=== PATIENT | male | born 1975 | race African-American/Black ===

== ENCOUNTER 2018-09-07 20:03 | Inpatient (IN) | payer MEDICAID, OTHER ==
[~2018-09-07] VITALS: Ht 193 cm; Wt 127.0 kg
[~2018-09-07 20:03] MED LIST: BENADRYL50 MG ORAL; BUPROPION XL300 MG ORAL
[2018-09-07 20:12] VITALS: BP 180/101
--- NOTE | 2018-09-07 20:12 | NUR ---
ED Nurse Note: pt was [place] in by [address] c/o posible overdose. pt stated he took some sherm today. pt aox3. on collar brace upon arrival. pt denies any pain. pt becomes agitaed and got frustrated when he is looking for his jacket and wasnt able to find it. ewelina ordered restraint and im meds. and carried out. will conit
[2018-09-07] MEDS ORDERED: DiphenhydrAMINE 50mg/ml Inj IM ONE (20:15)
[2018-09-07] MEDS ORDERED: Haloperidol 5mg/ml Inj IM ONE (20:15)
[2018-09-07] MEDS ORDERED: LORazepam Inj 2mg/ml 1ml IM ONE (20:15)
[2018-09-07] MEDS ORDERED: Haloperidol 5mg/ml Inj ONE (20:15)
--- NOTE | 2018-09-07 20:15 | Emergency Room Report ---
History of Present Illness General Source: EMS, Law Enforcement (Vishnu Balderas MD) Present Illness HPI Patient [place] altered on [place]. He was laying on the ground and Police reported pinpoint pupils. EMS felt that this is not related to narcotics but the patient admitted to smoking [employer]. He is unable to answer questions at this time. Some apparent head trauma. Has bump on forehead. Place in hard C collar. H/O prior psychiatric problems. Last seen here January 2015. At that time he received a prescription for Wellbutrin and was able to be discharged home. Prior to that he was seen here for dystonic reaction. (Vishnu Balderas MD) Allergies: Coded Allergies: No Known Allergies (Unverified , 12/20/14) Patient History Limited by: medical condition Past Medical History: see triage record Social History: Reports: drug use Social History Narrative allegedly transient/streets Reviewed Nursing Documentation: PMH: Agreed; PSxH: Agreed (Vishnu Balderas MD) Review of Systems All Other Systems: limited (Vishnu Balderas MD) Physical Exam Vital Signs Date Time Temp Pulse Resp B/P (MAP) Pulse Ox O2 Delivery O2 Flow Rate FiO2 09/07/18 20:12 101 18 98 Room Air 09/07/18 20:12 98.0 180/101 Sp02 EP Interpretation: reviewed, normal General Appearance: well appearing, no apparent distress, alert, other - Unable to respond to external stimuli Head: normocephalic, other - Bump on top of forehead Eyes: bilateral eye PERRL, bilateral eye Scleral Injection ENT: moist mucus membranes Neck: supple, other - Cervical collar however no bony tenderness Respiratory: lungs clear, normal breath sounds Cardiovascular #1: regular rate, rhythm Cardiovascular #2: 2+ radial (R) Gastrointestinal: normal inspection, normal bowel sounds, non tender, no mass, non-distended Musculoskeletal: back normal, normal range of motion Neurologic: alert, motor strength/tone normal, DTRs symmetric, sensory intact, oriented - Responds to name but not to commands Psychiatric: other - Dissociated Skin: normal inspection, warm/dry (Vishnu Balderas MD) Medical Decision Making Medical: Substance Abuse, Other - PCP Restraint Reassesment I, Vishnu Balderas MD, have personally evaluated this patient. Laboratory tests have been reviewed and addressed accordingly. The patient is deemed to present a danger to themselves and/or others. This is based on the exam, history ( provided by patient, EMS/[employer]) and observed or reported behavior. Attempts for non-invasive measures have been considered and/or attempted, however, have been futile. It is in the best interest of the nursing staff, the patient, and others involved in this patient's care that behavioral restraints be applied. Patient evaluation reveals the following: (Vishnu Balderas MD) Diagnostic Impression: Primary Impression: Altered level of consciousness Additional Impressions: PCP abuse Rhabdomyolysis Qualified Codes: M62.82 - Rhabdomyolysis ER Course Patient presents with altered mentation and allegedly smoking PCP. I differential includes brain bleed, acute myocardial infarction, alcohol intoxication, phencyclidine abuse amongst others. The patient is violent and not listening to prompts to de-escalate. The patient will be placed in hard restraints and sedated. EKG no injury. CXR no infiltrate. CT head - neg. CT neck - straightening. Labs + PCP and THC. Improved and decreased agitation after sedation. Out of restraints at 20:56. Patient sleeping. Lethargic and slow to respond. Signed out to Dr. Duran. Laboratory Tests Test 09/07/18 20:51 09/07/18 21:30 White Blood Count 12.5 K/UL (4.8-10.8) H Red Blood Count 4.91 M/UL (4.70-6.10) Hemoglobin 14.9 G/DL (14.2-18.0) Hematocrit 44.8 % (42.0-52.0) Mean Corpuscular Volume 91 FL (80-99) Mean Corpuscular Hemoglobin 30.4 PG (27.0-31.0) Mean Corpuscular Hemoglobin Concent 33.3 G/DL (32.0-36.0) Red Cell Distribution Width 12.7 % (11.6-14.8) Platelet Count 223 K/UL (150-450) Mean Platelet Volume 7.8 FL (6.5-10.1) Neutrophils (%) (Auto) 85.1 % (45.0-75.0) H Lymphocytes (%) (Auto) 9.1 % (20.0-45.0) L Monocytes (%) (Auto) 4.6 % (1.0-10.0) Eosinophils (%) (Auto) 0.2 % (0.0-3.0) Basophils (%) (Auto) 1.0 % (0.0-2.0) Sodium Level 139 MMOL/L (136-145) Potassium Level 4.2 MMOL/L (3.5-5.1) Chloride Level 105 MMOL/L (98-107) Carbon Dioxide Level 20 MMOL/L (21-32) L Anion Gap 14 mmol/L (5-15) Blood Urea Nitrogen 22 mg/dL (7-18) H Creatinine 1.2 MG/DL (0.55-1.30) Estimate Glomerular Filtration Rate > 60 mL/min (>60) Glucose Level 108 MG/DL (74-106) H Calcium Level 8.6 MG/DL (8.5-10.1) Total Bilirubin 0.3 MG/DL (0.2-1.0) Aspartate Amino Transferase (AST) 37 U/L (15-37) Alanine Aminotransferase (ALT) 29 U/L (12-78) Alkaline Phosphatase 92 U/L (46-116) Total Creatine Kinase 423 U/L (26-308) H Total Protein 7.7 G/DL (6.4-8.2) Albumin 3.7 G/DL (3.4-5.0) Globulin 4.0 g/dL Albumin/Globulin Ratio 0.9 (1.0-2.7) L Salicylates Level 3.5 ug/mL (2.8-20) Acetaminophen Level < 2 MCG/ML (10-30) L Serum Alcohol < 3 mg/dL Urine Color Yellow Urine Appearance Clear Urine pH 5 (4.5-8.0) Urine Specific [place] 1.025 (1.005-1.035) Urine Protein 2+ (NEGATIVE) H Urine Glucose (UA) Negative (NEGATIVE) Urine Ketones 2+ (NEGATIVE) H Urine Blood 2+ (NEGATIVE) H Urine Nitrite Negative (NEGATIVE) Urine Bilirubin Negative (NEGATIVE) Urine Urobilinogen 1 MG/DL (0.0-1.0) H Urine Leukocyte Esterase Negative (NEGATIVE) Urine RBC 0-2 /HPF (0 - 0) H Urine WBC 0 /HPF (0 - 0) Urine Squamous Epithelial Cells None /LPF (NONE/OCC) Urine Bacteria Few /HPF (NONE) Urine Opiates Screen Negative (NEGATIVE) Urine Barbiturates Screen Negative (NEGATIVE) Phencyclidine (PCP) Screen Positive (NEGATIVE) H Urine Amphetamines Screen Negative (NEGATIVE) Urine Benzodiazepines Screen Negative (NEGATIVE) Urine Cocaine Screen Negative (NEGATIVE) Urine Marijuana (THC) Screen Positive (NEGATIVE) H (Vishnu Balderas MD) ER Course Patient was endorsed to me by Dr. Balderas. Patient was noted to have become more alert. Patient states that he has been having some hallucinations. He states that he has prior history of depression. Patient was noted to have somewhat elevated CPK which continues to elevate mildly. Patient was given IV fluids and will be continued on IV fluids until medically cleared. (Candelario Duran MD) ER Course Hospital Course 43 yo M presents with AMS. substance abuse. hearing voices Clinical course Patient initially seen by Dr. Balderas; please see his note for full history and physical Signed out to me by Dr. Duran. CTs negative. Has rising CK. IV boluses given. Despite IV hydration CK continues to rise. Patient not endorsing SI or HI but is hearing voices. Would benefit from psychiatric assessment case discussed with Dr. Quiñones and he agreed to accept the patient to his service for further care and support i. I feel this is a highly complex case requiring extensive working including EKG/Rhythm strip, Xray/CT/US, Blood/urine lab work, repeat exams while in ED, and administration of strong opiates/narcotics for pain control, admission to hospital or close patient follow up. Diagnosis - rhabdo, ALOC, PCP abuse Admitted to floor in serious condition Labs Test 09/07/18 20:51 09/07/18 21:30 09/08/18 02:11 09/08/18 06:00 White Blood Count 12.5 K/UL (4.8-10.8) Red Blood Count 4.91 M/UL (4.70-6.10) Hemoglobin 14.9 G/DL (14.2-18.0) Hematocrit 44.8 % (42.0-52.0) Mean Corpuscular Volume 91 FL (80-99) Mean Corpuscular Hemoglobin 30.4 PG (27.0-31.0) Mean Corpuscular Hemoglobin Concent 33.3 G/DL (32.0-36.0) Red Cell Distribution Width 12.7 % (11.6-14.8) Platelet Count 223 K/UL (150-450) Mean Platelet Volume 7.8 FL (6.5-10.1) Neutrophils (%) (Auto) 85.1 % (45.0-75.0) Lymphocytes (%) (Auto) 9.1 % (20.0-45.0) Monocytes (%) (Auto) 4.6 % (1.0-10.0) Eosinophils (%) (Auto) 0.2 % (0.0-3.0) Basophils (%) (Auto) 1.0 % (0.0-2.0) Sodium Level 139 MMOL/L (136-145) Potassium Level 4.2 MMOL/L (3.5-5.1) Chloride Level 105 MMOL/L (98-107) Carbon Dioxide Level 20 MMOL/L (21-32) Anion Gap 14 mmol/L (5-15) Blood Urea Nitrogen 22 mg/dL (7-18) Creatinine 1.2 MG/DL (0.55-1.30) Estimat Glomerular Filtration Rate > 60 mL/min (>60) Glucose Level 108 MG/DL (74-106) Calcium Level 8.6 MG/DL (8.5-10.1) Total Bilirubin 0.3 MG/DL (0.2-1.0) Aspartate Amino Transf (AST/SGOT) 37 U/L (15-37) Alanine Aminotransferase (ALT/SGPT) 29 U/L (12-78) Alkaline Phosphatase 92 U/L (46-116) Total Creatine Kinase 423 U/L (26-308) 599 U/L (26-308) 711 U/L (26-308) Total Protein 7.7 G/DL (6.4-8.2) Albumin 3.7 G/DL (3.4-5.0) Globulin 4.0 g/dL Albumin/Globulin Ratio 0.9 (1.0-2.7) Salicylates Level 3.5 ug/mL (2.8-20) Acetaminophen Level < 2 MCG/ML (10-30) Serum Alcohol < 3 mg/dL Urine Color Yellow Urine Appearance Clear Urine pH 5 (4.5-8.0) Urine Specific [place] 1.025 (1.005-1.035) Urine Protein 2+ (NEGATIVE) Urine Glucose (UA) Negative (NEGATIVE) Urine Ketones 2+ (NEGATIVE) Urine Blood 2+ (NEGATIVE) Urine Nitrite Negative (NEGATIVE) Urine Bilirubin Negative (NEGATIVE) Urine Urobilinogen 1 MG/DL (0.0-1.0) Urine Leukocyte Esterase Negative (NEGATIVE) Urine RBC 0-2 /HPF (0 - 0) Urine WBC 0 /HPF (0 - 0) Urine Squamous Epithelial Cells None /LPF (NONE/OCC) Urine Bacteria Few /HPF (NONE) Urine Opiates Screen Negative (NEGATIVE) Urine Barbiturates Screen Negative (NEGATIVE) Phencyclidine (PCP) Screen Positive (NEGATIVE) Urine Amphetamines Screen Negative (NEGATIVE) Urine Benzodiazepines Screen Negative (NEGATIVE) Urine Cocaine Screen Negative (NEGATIVE) Urine Marijuana (THC) Screen Positive (NEGATIVE) Test 09/08/18 08:19 Total Creatine Kinase 807 U/L (26-308) (Golden Johnson MD) EKG Diagnostic Results Rate: normal Rhythm: NSR ST Segments: no acute changes (Vishnu Balderas MD) Rhythm Strip Diag. Results EP Interpretation: yes Rhythm: NSR, no PVC's, no ectopy (Vishnu Balderas MD) Chest X-Ray Diagnostic Results Chest X-Ray Diagnostic Results : Chest X-Ray Ordered: Yes # of Views/Limited/Complete: 1 View Indication: Other EP Interpretation: Yes Interpretation: no consolidation, no effusion, no pneumothorax Impression: No acute disease Electronically Signed by: Electronically signed by Vishnu Balderas MD (Vishnu Balderas MD) CT/MRI/US Diagnostic Results CT/MRI/US Diagnostic Results #1: Imaging Test Ordered: head Impression no bleed, fracture or mass effect CT/MRI/US Diagnostic Results #2: Imaging Test Ordered: C-spine Impression straightening no fractures (Vishnu Balderas MD) Status: improved (Vishnu Balderas MD) Status: improved (Golden Johnson MD) Disposition: ADMITTED INPATIENT Condition: Serious Vishnu Balderas MD Sep 07, 2018 20:15 Candelario Duran MD Sep 08, 2018 06:28 Golden Johnson MD Sep 08, 2018 10:26
[2018-09-07] MEDS ORDERED: NKM (20:20)
[2018-09-07 20:27] VITALS: BP 139/103
[2018-09-07 20:42] VITALS: BP 135/98
--- NOTE | 2018-09-07 21:00 | NUR ---
ED Nurse Note: auto body technician on bedside. pt is cooperative and asking for water and pt able to tolerate. will continue to monitor.
--- NOTE | 2018-09-07 21:04 | NUR ---
ED Nurse Note: pt went to ct with tech. collar brace removed as per ermd advice. will continue to monitor.
[2018-09-07 21:16] LABS: HEMATOCRIT 44.8 % (42.0-52.0); HEMOGLOBIN 14.9 G/DL (14.2-18.0); MEAN CORPUSCULAR VOLUME 91 FL (80-99); PLATELET COUNT 223 K/UL (150-450); RED BLOOD COUNT 4.91 M/UL (4.70-6.10); RED CELL DISTRIBUTION WIDTH 12.7 % (11.6-14.8); WHITE BLOOD COUNT 12.5 K/UL (4.8-10.8)
[2018-09-07 21:22] LABS: EOSINOPHILS % (AUTO) 0.2 % (0.0-3.0); LYMPHOCYTES % (AUTO) 9.1 % (20.0-45.0); MONOCYTES % (AUTO) 4.6 % (1.0-10.0); NEUTROPHILS % (AUTO) 85.1 % (45.0-75.0)
[2018-09-07 21:31] LABS: ANION GAP 14 mmol/L (5-15); BLOOD UREA NITROGEN 22 mg/dL (7-18); CALCIUM 8.6 MG/DL (8.5-10.1); CARBON DIOXIDE 20 MMOL/L (21-32); CHLORIDE 105 MMOL/L (98-107); CREATININE 1.2 MG/DL (0.55-1.30); POTASSIUM 4.2 MMOL/L (3.5-5.1); SODIUM 139 MMOL/L (136-145)
[2018-09-07 21:35] LABS: ALANINE AMINOTRANSFERASE 29 U/L (12-78); ALBUMIN 3.7 G/DL (3.4-5.0); ALBUMIN/GLOBULIN RATIO 0.9 (1.0-2.7); ALKALINE PHOSPHATASE 92 U/L (46-116); ASPARTATE AMINO TRANSFERASE 37 U/L (15-37); BILIRUBIN,TOTAL 0.3 MG/DL (0.2-1.0); CREATINE KINASE 423 U/L (26-308)
--- NOTE | 2018-09-07 21:43 | Diagnostic Imaging Report ---
EXAM: CT Cervical Spine Without Intravenous Contrast CLINICAL HISTORY: TRAUMA TECHNIQUE: Axial computed tomography images of the cervical spine without intravenous contrast. CTDI is 49 mGy and DLP is 1060 mGy-cm. One or more of the following dose reduction techniques were used: automated exposure control, adjustment of the mA and/or kV according to patient size, use of iterative reconstruction technique. Coronal and sagittal reformatted images were created and reviewed. Axial reformatted images were created and reviewed. COMPARISON: No relevant prior studies available. FINDINGS: Vertebrae: Cervical spine straightening, which may represent patient positioning or muscle spasm. No acute fracture. Discs/spinal canal/neural foramina: No acute findings. No spinal canal stenosis. Soft tissues: Unremarkable. IMPRESSION: 1. Cervical spine straightening, which may represent patient positioning or muscle spasm. 2. Otherwise unremarkable CT of spine without acute abnormality.
[2018-09-07 21:46] LABS: APPEARANCE,URINE CLEAR; BILIRUBIN, URINE NEGATIVE (NEGATIVE); GLUCOSE, URINE (UA) NEGATIVE (NEGATIVE); KETONES,URINE 2+ (NEGATIVE); LEUKOCYTE ESTERASE ,URINE NEGATIVE (NEGATIVE); NITRITE,URINE NEGATIVE (NEGATIVE); PH,URINE 5 (4.5-8.0); PROTEIN,URINE 2+ (NEGATIVE); UROBILINOGEN,URINE 1 MG/DL (0.0-1.0)
[2018-09-07 21:49] LABS: COLOR,URINE YELLOW
[2018-09-07 23:57] VITALS: BP 104/67
[2018-09-08 02:37] LABS: CREATINE KINASE 599 U/L (26-308)
[2018-09-08] MEDS: LR 1000ml 1,000 ML IV SCH ×2 (03:21→07:20)
--- NOTE | 2018-09-08 03:23 | NUR ---
ED Nurse Note: with new ivf order from ewelina and carried out. pt went back to sleep. no complaint. will continue to monitor.
[2018-09-08 03:32] VITALS: BP 110/60
[2018-09-08 05:47] VITALS: BP 108/68
--- NOTE | 2018-09-08 06:06 | NUR ---
ED Nurse Note: ermd on bedside. talking with pt regarding the need to see psyciatrist and social services in the morning. pt agreed. pt has no complain at the moment. will continue to monitor
[2018-09-08 06:22] LABS: CREATINE KINASE 711 U/L (26-308)
--- NOTE | 2018-09-08 06:43 | NUR ---
ED Nurse Note: pt creatine kinase 71md Bhupendra is aware. recheck ck @6545-4458 am and keep fluids running as per ermd. pt on bed. no complaint. pt is cooperative. vital signs stable. pt urine is yellowish. will continue to monitor.
[2018-09-08 07:15] VITALS: BP 110/65
--- NOTE | 2018-09-08 07:20 | NUR ---
ED Nurse Note: Received report from Hilary RN. Pt in bed alseep but awoken when introductions made. Pt A&Ox4, denies pain and SI/HI. Made a verbal contract with pt that he will be safe. IVF running at prescribed rate. VS taken. Pt's belongings list reviewed and signed and belongings locked in psych locker 1. Diet tray provided for pt and he consumed 65% of meal. Pt desires to get psych evaluation. Blood drawn for CK repeat due to elevating results. Awaiting doctor's arrival.
[2018-09-08 08:46] LABS: CREATINE KINASE 807 U/L (26-308)
[2018-09-08] MEDS ORDERED: LR 1000ml 1,000 ML IV SCH (09:30)
--- NOTE | 2018-09-08 09:35 | NUR ---
ED Nurse Note: Pt in bed asleep with IVF running at prescribed rate. CK lab results came back elevated to 800s. Awaiting posible admit order/ instructions.
--- NOTE | 2018-09-08 09:44 | Diagnostic Imaging Report ---
Indication: Headache. Head trauma Technique: Contiguous 5 mm thick transaxial imaging of the head obtained in a Siemens Sensation [address] scanner. Soft tissue and bone windows generated. Automatic Exposure Control was utilized. Total Dose length Product (DLP): 2568.[address] Dose Index Volume (CTDIvol): 70.38,8.82,20.59,20.59 mGy Comparison: none Findings: The size and configuration of the cortical sulci, basal cisterns, and ventricles are within normal limits for age. There is no mass effect, midline shift, or edema identified. There is no evidence of acute hemorrhage or abnormal intra-axial or extra-axial fluid collections. The bones and soft tissues are unremarkable. Impression: No mass effect, edema or acute bleed. Study limited by [facility] has communicated the preliminary results to the Emergency Department. Their findings are largely concordant with this report. The CT scanner at [facility] is accredited by the [employer] and the scans are performed using dose optimization techniques as appropriate to a performed exam including Automatic Exposure control.
--- NOTE | 2018-09-08 10:51 | Diagnostic Imaging Report ---
Indication: Dyspnea Comparison: None A single view chest radiograph was obtained. Findings: Cardiomediastinal appearance is within normal limits for age. The lungs are clear. Pulmonary vascularity is appropriate. The diaphragmatic contour is smooth and costophrenic angles are sharp. No pleural effusions are identified. There is an old fracture of the left clavicle. Impression: No acute findings
[2018-09-08] MEDS ORDERED: Mylanta II UD 30ml ORAL PRN (11:00)
[2018-09-08] MEDS ORDERED: Morphine Sulfate 4mg/ml Inj (IV/IM USE ONLY) IVP PRN (11:00)
[2018-09-08] MEDS ORDERED: LORazepam Inj 2mg/ml 1ml IV PRN (11:00)
[2018-09-08 12:00] VITALS: BP 127/68
[2018-09-08] MEDS ORDERED: LORazepam Inj 2mg/ml 1ml IM PRN (15:00)
[2018-09-08] MEDS ORDERED: Flu Vaccine (Alfuria) for Pts Less than 65 Years old IM ONE (15:00)
--- NOTE | 2018-09-08 15:58 | NUR ---
CASE MANAGEMENT: REVIEW 43/M [place] FROM [address] CC: OVERDOSE SI: OVERDOSE . RHABDOMYOLYSIS T 98.0 HR 101 RR 32 BP 180/101 SAT 95% ROOM AIR WBC 12.5 ACETAMINOPHEN <2 PCP + THC + IS: HALDOL IM X1 ATIVAN IM X1 BENADRYL INTERQUAL CRITERIA MET: PATIENT ADMITTED TO MED/SURG UNIT 09/08/2018 DCP: PATIENT IS FROM HOME
[2018-09-08 16:00] VITALS: BP 105/63
--- NOTE | 2018-09-08 19:41 | NUR ---
HAND-OFF: Report given to RADHA [place]. Addendum: 09/08/18 at 1943 by JEANNIE GRAHAM RN HAND-OFF: Report given to RADHA Garcia
[2018-09-08 20:00] VITALS: BP 116/65
--- NOTE | 2018-09-08 20:54 | Consultation ---
History of Present Illness General Chief Complaint: Overdose Present Illness HPI Patient is a 43 yo male with hx of substance use do the patient admitted to [facility]. the pt is denying any si/hi. the pt was irritable and was able to answer the simple questions. the pt does not endorse psychotic manic sxs he stated that he wanted to be left alone Allergies: Coded Allergies: No Known Allergies (Unverified , 12/20/14) Medication History Scheduled Bupropion Hcl* (Wellbutrin*), 300 MG ORAL DAILY No Known Medications* (NKM - No Known Medications*), 0 ., (Reported) Scheduled PRN Diphenhydramine HCl (Diphenhydramine HCl), 50 MG ORAL Q6H PRN for dystonia Patient History History Provided By: Patient, Medical Record, PMD Healthcare decision maker Resuscitation status Advanced Directive on File Past Medical/Surgical History Past Medical/Surgical History: (1) Dystonia (2) Dystonia (3) Psychiatric disorder (4) Psychiatric disorder (5) Altered level of consciousness (6) Rhabdomyolysis (7) PCP abuse Review of Systems Psychiatric: Reports: prior hx, anxiety, emotional problems Physical Exam General Appearance: no apparent distress, alert Neurologic: oriented x 3, responsive, normal mood/affect Last 24 Hour Vital Signs Date Time Temp Pulse Resp B/P (MAP) Pulse Ox O2 Delivery O2 Flow Rate FiO2 09/08/18 16:00 97.7 63 105/63 (77) 09/08/18 12:00 98.0 62 127/68 (87) 09/08/18 11:59 Room Air 09/08/18 10:34 97.4 57 16 115/82 99 Room Air 09/08/18 07:15 97.4 67 14 110/65 100 Room Air 09/08/18 05:47 97.8 70 16 108/68 98 Room Air 09/08/18 03:32 97.8 70 12 110/60 96 Room Air 09/07/18 23:57 98.0 73 16 104/67 96 Room Air Intake and Output 09/07/18 09/08/18 18:59 06:59 Intake Total 3200 ml Balance 3200 ml Intake IV Total 3200 ml Laboratory Tests Test 09/07/18 21:30 09/08/18 02:11 09/08/18 06:00 09/08/18 08:19 Urine Color Yellow Urine Appearance Clear Urine pH 5 (4.5-8.0) Urine Specific [place] 1.025 (1.005-1.035) Urine Protein 2+ (NEGATIVE) H Urine Glucose (UA) Negative (NEGATIVE) Urine Ketones 2+ (NEGATIVE) H Urine Blood 2+ (NEGATIVE) H Urine Nitrite Negative (NEGATIVE) Urine Bilirubin Negative (NEGATIVE) Urine Urobilinogen 1 MG/DL (0.0-1.0) H Urine Leukocyte Esterase Negative (NEGATIVE) Urine RBC 0-2 /HPF (0 - 0) H Urine WBC 0 /HPF (0 - 0) Urine Squamous Epithelial Cells None /LPF (NONE/OCC) Urine Bacteria Few /HPF (NONE) Urine Opiates Screen Negative (NEGATIVE) Urine Barbiturates Screen Negative (NEGATIVE) Phencyclidine (PCP) Screen Positive (NEGATIVE) H Urine Amphetamines Screen Negative (NEGATIVE) Urine Benzodiazepines Screen Negative (NEGATIVE) Urine Cocaine Screen Negative (NEGATIVE) Urine Marijuana (THC) Screen Positive (NEGATIVE) H Total Creatine Kinase 599 U/L (26-308) H 711 U/L (26-308) H 807 U/L (26-308) H Test 09/08/18 18:00 Troponin I 0.016 ng/mL (0.000-0.056) Height (Feet): 6 Height (Inches): 4.00 Weight (Pounds): 280 Medications Current Medications Medications (Trade) Dose Ordered Sig/Khari Route PRN Reason Start Time Stop Time Status Last Admin Dose Admin Acetaminophen (Tylenol) 650 mg Q4H PRN ORAL fever 09/08/18 11:00 10/08/18 10:59 Al Hydroxide/Mg Hydroxide (Mylanta II) 30 ml Q6H PRN ORAL dyspepsia 09/08/18 11:00 10/08/18 10:59 Dextrose (Dextrose 50%) 25 ml Q30M PRN IV Hypoglycemia 09/08/18 11:00 10/08/18 10:59 Dextrose (Dextrose 50%) 50 ml Q30M PRN IV Hypoglycemia 09/08/18 11:00 10/08/18 10:59 Lorazepam (Ativan 2mg/ml 1ml) 2 mg Q4H PRN IM For Anxiety 09/08/18 15:00 09/15/18 14:59 Morphine Sulfate (Morphine Sulfate) 2 mg Q4H PRN IVP For Pain 09/08/18 11:00 09/15/18 10:59 Ondansetron HCl (Zofran) 4 mg Q6H PRN IVP Nausea & Vomiting 09/08/18 11:00 10/08/18 10:59 Polyethylene Glycol (Miralax) 17 gm HSPRN PRN ORAL Constipation 09/08/18 21:00 10/08/18 20:59 Risperidone (RisperDAL) 2 mg BEDTIME ORAL 09/08/18 21:00 10/08/18 20:59 Sodium Chloride 1,000 ml @ 75 mls/hr [id number] IV 09/08/18 17:30 10/08/18 17:29 09/08/18 18:21 Zolpidem Tartrate (Ambien) 5 mg HSPRN PRN ORAL Insomnia 09/08/18 21:00 09/15/18 20:59 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
[2018-09-08] MEDS ORDERED: Miralax 17gm pkt ORAL PRN (21:00)
[2018-09-08] MEDS ORDERED: Zolpidem 5mg tab ORAL PRN (21:00)
--- NOTE | 2018-09-08 21:20 | NUR ---
NURSE NOTES: Patient refused Risperdal. RN stated the risks and benefits of the medication. Patient stated that he gets side effects from the medication.
[2018-09-09] VITALS: BP 101/63
--- NOTE | 2018-09-09 00:42 | History and Physical Report ---
DATE OF ADMISSION: 09/08/2018 CHIEF COMPLAINT: The patient is a 43-year-old male, now presents with chief complaint of altered mental status. HISTORY OF PRESENT ILLNESS: The patient was found by [place] Police Department lying on the train tracks. The patient was reported to have . Much of the History and Physical is taken from the emergency room record, the patient is currently sleeping. The patient presented to [facility]. The patient was noted to have some head trauma. An initial CT scan of the head failed to demonstrate acute disease or hemorrhage. The patient was admitted for possible drug overdose. REVIEW OF SYSTEMS: Unable to assess secondary to the patient's mental status. PAST MEDICAL HISTORY: Significant for the patient's "psychiatric disorder." PAST SURGICAL HISTORY: Unknown. CURRENT MEDICATION: Wellbutrin 300 mg one tablet p.o. daily. ALLERGIES: No known drug allergies. SOCIAL HISTORY: The patient is single. The patient admits to tobacco use. PHYSICAL EXAMINATION: VITAL SIGNS: Temperature 97.8, respirations 16, pulse , and blood pressure 108/68. GENERAL: The patient is a well-developed and well-nourished male, who is lethargic. HEENT: Eyes, pupils equal and responsive to light and accommodation. Extraocular movements are intact. NECK: Supple without lymphadenopathy. CHEST: Lungs are clear to auscultation bilaterally without wheezes or rales. CARDIOVASCULAR: Regular rhythm and rate. S1 and S2 normal without murmurs, rubs, or gallops. ABDOMEN: Soft, nontender, and nondistended. Positive bowel sounds. No evidence of hepatosplenomegaly. Currently, no rebound or guarding. EXTREMITIES: Negative for clubbing, cyanosis, or edema. RECTAL: Refused. GENITALIA: Refused. NEUROLOGIC: Cranial nerves II through XII are grossly intact without focal deficits. Motor strength is 5/5 bilaterally. Deep tendon reflexes are 2+ plantar. LABORATORY STUDIES: WBC 12.5, hemoglobin 14.9, hematocrit 44.8, and platelets 223,000. Sodium 139, potassium 4.2, chloride 105, CO2 20, BUN 22, creatinine 1.2, and glucose 108. Total creatine kinase 423. Urine toxicology was positive for phencyclidine and marijuana. IMAGING DATA: A CT scan of the brain failed to demonstrate acute hemorrhage or infarct. ASSESSMENT: This is a 43-year-old male. 1. Rhabdomyolysis. 2. Elevated cardiac enzymes. 3. Major depression. 4. Drug abuse, specifically phencyclidine. TREATMENT: 1. Rhabdomyolysis. The patient is currently receiving intravenous fluids. A Cardiology consultation is pending with Dr. Quiles. We will follow recommendation of Cardiology. 2. Elevated cardiac enzymes, as above. A Cardiology consultation has been obtained with Dr. Quiles. 3. Major depression. A Psychiatric consultation was obtained with Dr. Baird. 4. Drug abuse. Sussy Sinclair JOB#: [id number] CC:
[2018-09-09 04:00] VITALS: BP 130/68
[2018-09-09 06:07] LABS: BASOPHILS % (AUTO) 1.3 % (0.0-2.0); EOSINOPHILS % (AUTO) 3.5 % (0.0-3.0); HEMATOCRIT 39.5 % (42.0-52.0); HEMOGLOBIN 13.3 G/DL (14.2-18.0); LYMPHOCYTES % (AUTO) 20.7 % (20.0-45.0); MEAN CORPUSCULAR VOLUME 91 FL (80-99); MONOCYTES % (AUTO) 7.3 % (1.0-10.0); NEUTROPHILS % (AUTO) 67.2 % (45.0-75.0); PLATELET COUNT 212 K/UL (150-450); RED BLOOD COUNT 4.36 M/UL (4.70-6.10); RED CELL DISTRIBUTION WIDTH 12.6 % (11.6-14.8); WHITE BLOOD COUNT 5.3 K/UL (4.8-10.8)
[2018-09-09 06:47] LABS: ALANINE AMINOTRANSFERASE 25 U/L (12-78); ALBUMIN 3.2 G/DL (3.4-5.0); ALBUMIN/GLOBULIN RATIO 1.1 (1.0-2.7); ALKALINE PHOSPHATASE 87 U/L (46-116); ANION GAP 8 mmol/L (5-15); ASPARTATE AMINO TRANSFERASE 29 U/L (15-37); BILIRUBIN,TOTAL 0.4 MG/DL (0.2-1.0); BLOOD UREA NITROGEN 10 mg/dL (7-18); CALCIUM 8.6 MG/DL (8.5-10.1); CARBON DIOXIDE 23 MMOL/L (21-32); CHLORIDE 107 MMOL/L (98-107); CHOLESTEROL 147 MG/DL (< 200); CREATININE 0.9 MG/DL (0.55-1.30); HDL CHOLESTEROL 44 MG/DL (40-60); POTASSIUM 3.8 MMOL/L (3.5-5.1); SODIUM 138 MMOL/L (136-145); TRIGLYCERIDES 53 MG/DL (30-150)
[2018-09-09 07:33] LABS: CREATINE KINASE 738 U/L (26-308)
--- NOTE | 2018-09-09 07:40 | NUR ---
HAND-OFF: Report given to RADHA Johnson.
--- NOTE | 2018-09-09 08:01 | NUR ---
NURSE NOTES: Patient is awake and alert,IV is out,will need restart.patient ate small amount of his breakfast,no complaints at this time.Call light within reach.
[2018-09-09 08:06] VITALS: BP 141/90
--- NOTE | 2018-09-09 09:27 | NUR ---
NURSE NOTES: patient very upset,social service talk with patient and patient state he is leaving he has personal things he has to take care of,Patient Mother as patient was leaving called on the phone,state that her son has psych problems and he can not come to her house.Patient on the elevator and not waiting to sign AMA Papers.patient has own his personal clothes Noted in room patient left his keys.Patient IV was noted out this morning.Will notify Doctor.
--- NOTE | 2018-09-09 09:28 | NUR ---
Social Work This Sw received a consult, due to substance abuse, possible homelessness. This SW met with patient who remains alert/oriented x4, independent. Patient stating he lives with his mother and planning to return to her home. Patient explained he has been feeling paranoid and feelings of depression, along with a history of suicidal ideations (denied any suicidal thoughts at this time). This Sw advised follow up with mental health services and recommended a Psychiatric consultation here as well. This Sw advised substance abuse treatment, support groups, while educating patient regarding risks involved with substance abuse. Patient denied auditory and visual hallucinations. This SW left the room to obtain substance abuse and mental health resources for patient. When returning to patients room, patient getting off the phone, explaining he is wanting to leave, refusing resources from this SW, stating "I'm having personal problems at home, I've been here too long. Patient getting his belongings and walking off the floor, appeared angry. Security notified by nursing. Patients mother calling the floor, expressing awareness that patient is leaving the hospital, requesting to place a hold on the patient. This Sw informed mother patient had left the floor already, against Medical Advice. Patients mother, stating "he cannot return here." This SW advised mother to contact the Police as needed, who will also have the ability to place patient on a hold, as needed. Phone was disconnected with mother. This SW and nursing unable to call patients mother back (no phone number listed).
--- NOTE | 2018-09-09 12:35 | Discharge Summary ---
Discharge Summary Discharge Summary _ DATE OF ADMISSION: 09/08/2018 DATE OF DISCHARGE: 09/09/2018 Patient left AGAINST MEDICAL ADVICE REASON FOR ADMISSION: 43 years old male with past medical history of depression and substance abuse, [place] police [place] the [place]. Patient presented with altered mentation. Vital signs reveal hypertension 180/101. Pulse oximetry was stable on room air. Troponin negative. EKG revealed sinus rhythm, no acute ischemic changes a. CT of the head revealed no acute intracranial pathology. Chest x-ray revealed no acute cardiopulmonary pathology. CT of the cervical spine revealed cervical spine straightening ,probably representing patient positioning versus muscle spasm. Urine toxicology screen was positive for PCP and marijuana. Serum salicylate, Tylenol and alcohol were negative. Mild leukocytosis with WBC 12.5 , no fevers. Stable electrolytes. BUN 22 creatinine 1.2 . CK 423 . Patient admitted with diagnoses of altered mental status, rhabdomyolysis ,drug abuse/PCP ,major depression. CONSULTANTS: psychiatrmorris Chaney [facility]: Patient admitted and started on IV hydration. Renal parameters and electrolytes were clsoely monitored. Nephrotoxins were avoided. CK initially trending up to maximum of 837, and on the day of signing AGAINST MEDICAL ADVICE started to trend down to 730. Serial troponin were negative. EKG revealed no acute ischemic changes. Patient was ruled out for acute [place]. Venous duplex bilateral lower extremity revealed no evidence of acute DVT. Blood pressure was closely monitored and stabilized. Mental status was closely monitored and returned to baseline. Psychiatrist seen and evaluated patient and diagnosed patient with PCP abuse. Per psychiatrist patient was not at imminent danger to self or others. Psychiatrist started patient on Risperdal and recommended to discharge when medically stable. Supportive care provided. Bowel regimen instituted. Leukocytosis resolved on the next day, likely was reactive. pupil personnel worker met with patient to discuss issues of substance abuse and possible homelessness. Patient at that time was awake, alert and oriented x4. Patient reported living with his mother and was planning to return to her home. Patient reported feelings of depression. pupil personnel worker advised patient to follow-up with outpatient mental health services. Patient was advised to substance abuse treatment and support group and educated regarding risks, involving substance abuse. Patient declined substance abuse and mental health resources, provided for him by neonatal social worker. Patient decided to leave AGAINST MEDICAL ADVICE. The risks and consequences of signing AGAINST MEDICAL ADVICE were discussed with patient . Patient declined to sign AMA form and left . FINAL DIAGNOSES: PCP abuse Altered level of consciousness due to PCP abuse , likely secondary to toxic encephalopathy-resolved Rhabdomyolysis Major depression I have been assigned to dictate discharge summary for this account. I was not involved in the patient's management. Araceli Garcia NP Sep 09, 2018 12:35
--- NOTE | 2018-09-09 22:36 | General Progress Note ---
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, uncomplicated SNOMED: [id number] Status: stable Assessment/Plan risperdal 2mg po qhs the pt is not at imminent dts/dto dc when medically cleared Subjective Neurologic/Psychiatric: Reports: anxiety, depressed, emotional problems Allergies: Coded Allergies: No Known Allergies (Unverified , 12/20/14) Objective Last 24 Hour Vital Signs Date Time Temp Pulse Resp B/P (MAP) Pulse Ox O2 Delivery O2 Flow Rate FiO2 09/09/18 09:00 Room Air 09/09/18 08:06 98.3 92 20 141/90 (107) 99 09/09/18 04:00 97.7 60 130/68 (88) 09/09/18 00:00 97.2 55 101/63 (76) Intake and Output 09/08/18 09/09/18 18:59 06:59 Intake Total 400 ml 400 ml Balance 400 ml 400 ml Intake Oral 400 ml IV Total 400 ml # Voids 1 1 Laboratory Tests 09/09/18 05:20: White Blood Count 5.3#, Red Blood Count 4.36L, Hemoglobin 13.3L, Hematocrit 39.5L, Mean Corpuscular Volume 91, Mean Corpuscular Hemoglobin 30.5, Mean Corpuscular Hemoglobin Concent 33.7, Red Cell Distribution Width 12.6, Platelet Count 212, Mean Platelet Volume 6.7, Neutrophils (%) (Auto) 67.2, Lymphocytes (% ) (Auto) 20.7, Monocytes (%) (Auto) 7.3, Eosinophils (%) (Auto) 3.5H, Basophils (%) (Auto) 1.3, Sodium Level 138, Potassium Level 3.8, Chloride Level 107, Carbon Dioxide Level 23, Anion Gap 8, Blood Urea Nitrogen 10, Creatinine 0.9, Estimat Glomerular Filtration Rate > 60, Glucose Level 97, Calcium Level 8.6, Total Bilirubin 0.4, Aspartate Amino Transf (AST/SGOT) 29, Alanine Aminotransferase (ALT/SGPT) 25, Alkaline Phosphatase 87, Total Creatine Kinase 738H, Troponin I 0.016, Total Protein 6.2L, Albumin 3.2L, Globulin 3.0, Albumin/ Globulin Ratio 1.1, Triglycerides Level 53, Cholesterol Level 147, LDL Cholesterol 93, HDL Cholesterol 44, Cholesterol/HDL Ratio 3.3, Thyroid Stimulating Hormone (TSH) 0.360 Height (Feet): 6 Height (Inches): 4.00 Weight (Pounds): 280 General Appearance: alert, agitated Neurologic: oriented x 3, responsive, normal mood/affect Ernie Baird MD Sep 09, 2018 22:36
--- NOTE | 2018-09-11 13:35 | NUR ---
CASE MANAGEMENT: CM review and clinical information (face sheet/ DC summary/ ER MD Note/ H&P) faxed to [facility]/ DEPT @ [phone] and [facility] DEPT @ [phone].
== END 2018-09-09 09:28 | disposition home or self-care (01) | DRG 776 ==
LOC: EDBD 20:03 → EMR 20:30 → 3E 09-08 09:45 → EDBEDREQ 09-08 10:26
DX: F16.10 Hallucinogen abuse, uncomplicated (principal); G92 Toxic encephalopathy; M62.82 Rhabdomyolysis; F32.9 Major depressive disorder, single episode, unspecified; F99 Mental disorder, not otherwise specified
CPT/HCPCS: 36415; 70450; 71045; 72125; 80053; 80061; 80307; 80329; 81003; 82550; 84443; 84484; 85025; 87081; 90686; 93970; 96360; 96372; 99285